=== PATIENT | female | born 1995 | race Caucasian/White ===

== ENCOUNTER 2018-11-24 14:30 | Inpatient (IN) | payer OTHER ==
[~2018-11-24] VITALS: Ht 162.6 cm; Wt 102.0 kg
[~2018-11-24 14:30] MED LIST: ACET500 PO; AMOX500 PO; Bactrim Ds Tab1 EACH PO; CEPH500 PO; CLOT1TC TOP; CRUTCH4 USE; ESCI10 PO; Flagyl500 MG PO; HYDACE5 PO; IBUP800 PO; INCARCERATION; Keflex500 MG PO; Mobic15 MG PO; NAPR500 PO; OMEP20ER PO; OXYACE5T PO; PHENA100 PO; RANI150; RXONDA4ODT MM; SULTRIDS PO; TETR250 PO; TRAZ50 PO; Tylenol325 MG PO; Verotin-Gr Cap1 EACH PO; Zofran Odt4 MG SL; Zofran Odt8 MG SL
[2018-11-25] MEDS ORDERED: Verotin-Gr Cap1 EACH PO (12:54)
[2018-11-25] MEDS ORDERED: IRON236 MG PO (12:56)
[2018-11-25 13:25] LABS: BASOPHILS ABSOLUTE AUTO 0.05 K/mm3 (0.00-0.23); BASOPHILS PERCENT AUTO 1 % (0-2); EOSINOPHILS ABSOLUTE AUTO 0.03 K/mm3 (0.00-0.68); EOSINOPHILS PERCENT AUTO 0 % (0-6); Hematocrit 33.5 % (33.0-51.0); Hemoglobin 10.7 g/dL (11.5-16.0); IMMATURE GRAN ABSOLUTE AUTO 0.03 K/mm3 (0.00-0.10); IMMATURE GRAN PERCENT AUTO 0 % (0-1); LYMPHOCYTES ABSOLUTE AUTO 1.46 K/mm3 (0.84-5.20); LYMPHOCYTES PERCENT AUTO 16 % (21-46); MONOCYTES ABSOLUTE AUTO 0.44 K/mm3 (0.16-1.47); MONOCYTES PERCENT AUTO 5 % (4-13); Mean Corpuscular HGB 27.8 pg (26.0-34.0); Mean Corpuscular HGB Conc 31.9 g/dL (31.5-36.5); Mean Corpuscular Volume 87 fL (80-100); Mean Platelet Volume 10.9 fL (9.1-12.4); NEUTROPHILS ABSOLUTE AUTO 7.03 K/mm3 (1.96-9.15); NEUTROPHILS PERCENT AUTO 78 % (41-73); Platelet Count 286 K/mm3 (150-400); RDW Standard Deviation 51.1 fL (35.1-46.3); Red Blood Cell Count 3.85 M/mm3 (3.80-5.20); White Blood Cell Count 9.04 K/mm3 (4.00-11.30)
[2018-11-26 08:29] LABS: PCO2 Cord - Arterial 50.3 mmHg (40-50); PO2 Cord - Arterial 19.4 mmHg (16-20); pH Cord - Arterial 7.34 (7.28-7.35)
[2018-11-26 08:30] LABS: PCO2 Cord - Venous 38.6 mmHg (40-50); pH Umbilical Cord - Venous 7.41 (7.26-7.35)
[2018-11-26 08:31] LABS: PO2 Cord - Venous 32.1 mmHg (28-32)
--- NOTE | 2018-11-26 08:47 | NUR ---
11/26/18 0847 Ansley Enriquez VIABLE FEMALE BORN AT 0813, 9/9, WEIGHT 3385, (7-7) H 12.34, C 13, L 19.75. CORD BLOOD GIVEN TO TAY GRANT. CORD GASES GIVEN TO KATHLEEN RT.
--- NOTE | 2018-11-26 12:01 | NUR ---
assumed care of pt and baby, pt reports pain 7/10, smiling to family, eating lunch, answering questions, not rocking in bed or moving from pain, talking normally
--- NOTE | 2018-11-26 17:16 | NUR ---
PT GIVEN HILARIO YOGURT TO EAT, SHE NOT SURE SHE IS GOING TO LIKE HER DINNER TRAY. REPORTS NO PAIN WHEN LAYING STILL, FAMIY AT BEDSIDE, BABY SLEEPING IN CRIB
[2018-11-27 06:42] LABS: BASOPHILS ABSOLUTE AUTO 0.05 K/mm3 (0.00-0.23); BASOPHILS PERCENT AUTO 1 % (0-2); EOSINOPHILS ABSOLUTE AUTO 0.07 K/mm3 (0.00-0.68); EOSINOPHILS PERCENT AUTO 1 % (0-6); Hematocrit 32.5 % (33.0-51.0); Hemoglobin 10.3 g/dL (11.5-16.0); IMMATURE GRAN ABSOLUTE AUTO 0.06 K/mm3 (0.00-0.10); IMMATURE GRAN PERCENT AUTO 1 % (0-1); LYMPHOCYTES ABSOLUTE AUTO 1.95 K/mm3 (0.84-5.20); LYMPHOCYTES PERCENT AUTO 18 % (21-46); MONOCYTES ABSOLUTE AUTO 1.04 K/mm3 (0.16-1.47); MONOCYTES PERCENT AUTO 10 % (4-13); Mean Corpuscular HGB 27.5 pg (26.0-34.0); Mean Corpuscular HGB Conc 31.7 g/dL (31.5-36.5); Mean Corpuscular Volume 87 fL (80-100); Mean Platelet Volume 10.7 fL (9.1-12.4); NEUTROPHILS ABSOLUTE AUTO 7.69 K/mm3 (1.96-9.15); NEUTROPHILS PERCENT AUTO 71 % (41-73); Platelet Count 216 K/mm3 (150-400); RDW Coefficient Variation 15.9 % (11.7-14.2); RDW Standard Deviation 50.4 fL (35.1-46.3); Red Blood Cell Count 3.75 M/mm3 (3.80-5.20); White Blood Cell Count 10.86 K/mm3 (4.00-11.30)
--- NOTE | 2018-11-28 11:41 | NUR ---
DISCHARGE INSTRUCTIONS REVIEWED WITH PT, PT VERBALIZED UNDERSTANDING AND DENIES ANY FURTHER QUESTIONS OR CONCERNS. PRESCRIPTIONS FOR IBUPROFEN AND PERCOCET GIVEN TO PT. PT STATES SHE HAS APPOINTMENT WITH [facility] ON Saturday12-02-18. NO OBVIOUS SIGNS OF ACUTE DISTRESS.
== END 2018-11-28 11:45 | disposition home or self-care (01) | DRG 788 ==
LOC: BC 11-26 05:25
PROVIDERS: ADMIT Obstetrics & Gynecology
PROC: 10D00Z1 Extraction of Products of Conception, Low, Open Approach (ICD-10-PCS; principal; 2018-11-26 07:30)
DX: O34.211 Maternal care for low transverse scar from previous cesarean delivery (principal); O99.02 Anemia complicating childbirth; D50.9 Iron deficiency anemia, unspecified; Z3A.39 39 weeks gestation of pregnancy; Z37.0 Single live birth; O99.62 Diseases of the digestive system complicating childbirth; K21.9 Gastro-esophageal reflux disease without esophagitis; O99.334 Smoking (tobacco) complicating childbirth; F17.210 Nicotine dependence, cigarettes, uncomplicated
CPT/HCPCS: 36415; 82803; 85025; 86850; 86900; 86901; J0690; J1100; J1885; J2370; J2405; J2590; J2704; J2765; J3010; J7120

== ENCOUNTER 2019-08-21 16:00 | Emergency (ER) | payer OTHER ==
[~2019-08-21] VITALS: Ht 160 cm; Wt 90.7 kg
[~2019-08-21 16:00] MED LIST changes: +IRON236 MG PO
== END 2019-08-21 16:43 | disposition home or self-care (01) ==
LOC: ER 16:00
DX: J02.0 Streptococcal pharyngitis (principal); F41.9 Anxiety disorder, unspecified; F32.9 Major depressive disorder, single episode, unspecified; Z79.899 Other long term (current) drug therapy; Z87.891 Personal history of nicotine dependence
CPT/HCPCS: 87430; 99282

== ENCOUNTER → 2020-03-10 | Outpatient (CLI) | payer OTHER ==
[2020-03-11 09:48] LABS: Candida species (DNA Probe) Negative (NEGATIVE); G. vaginalis (DNA Probe) Negative (NEGATIVE); T. vaginalis (DNA Probe) Negative (NEGATIVE)
[2020-03-12 20:09] LABS: CHLAMYDIA BY NAA Negative (Negative); GONOCOCCUS BY NAA Negative (Negative); TRICH VAG BY NAA Negative (Negative)
== END | disposition home or self-care (01) ==
LOC: LAB 18:46 → LAB SHORT 18:46
PROVIDERS: Family Medicine
DX: Z11.3 Encounter for screening for infections with a predominantly sexual mode of transmission (principal)
CPT/HCPCS: 87480; 87491; 87510; 87591; 87660; 87661

== ENCOUNTER → 2020-11-02 | Outpatient (CLI) | payer OTHER ==
[~2020-11-02] MED LIST changes: +Monodox100 MG PO; +Tindamax500 MG PO
[2020-11-05 13:10] LABS: CHLAMYDIA BY NAA Positive (Negative); GONOCOCCUS BY NAA Positive (Negative); TRICH VAG BY NAA Positive (Negative)
== END | disposition home or self-care (01) ==
LOC: LAB 15:25 → LAB SHORT 15:25
PROVIDERS: Chiropractor
DX: R82.79 Other abnormal findings on microbiological examination of urine (principal); Z72.51 High risk heterosexual behavior
CPT/HCPCS: 87086; 87491; 87591; 87661

== ENCOUNTER 2020-11-25 16:31 | Emergency (ER) | payer OTHER ==
[~2020-11-25] VITALS: Ht 160 cm; Wt 99.8 kg
[~2020-11-25 16:31] MED LIST changes: -Monodox100 MG PO; -Tindamax500 MG PO
[2020-11-25 18:31] LABS: Source, Urine Clean Catch
[2020-11-25 18:37] LABS: Bilirubin, Urine Neg (Neg); Blood, Urine 2+ (Neg); Glucose Qualitative, Urine Neg (Neg); Ketones, Urine 1+ (Neg); Leukocyte Esterase, Urine 3+ (Neg); Nitrite, Urine Neg (Neg); Protein, Urine 2+ (Neg); Specific Gravity, Urine 1.025 (1.003-1.022); Urobilinogen, Urine 1+ (Normal)
[2020-11-25 19:12] LABS: Amorphous Light (0-Heavy); Appearance, Urine Hazy (Clear); Bacteria Mod /hpf; Color, Urine Yellow (P-Yellow); Mucus Light (0-Heavy); Squamous Epithelial Cells Many /hpf (Few); White Blood Cells, Urine 50-100 /hpf (0-5)
[2020-11-25] MEDS ORDERED: CEPH500 PO ×2 (19:23→19:25)
[2020-11-29 00:07] LABS: GONOCOCCUS BY NAA Negative (Negative); TRICH VAG BY NAA Positive (Negative)
[2020-11-29 10:22] LABS: CHLAMYDIA BY NAA Positive (Negative)
[2020-11-29] MEDS ORDERED: Tindamax500 MG PO (10:41)
[2020-11-29] MEDS ORDERED: Monodox100 MG PO (10:41)
== END 2020-11-25 19:36 | disposition home or self-care (01) ==
LOC: ER 16:31
PROVIDERS: Student in an Organized Health Care Education/Training Program
DX: A59.00 Urogenital trichomoniasis, unspecified (principal)
CPT/HCPCS: 81001; 81025; 87086; 87147; 87491; 87591; 87661; 99283-25

== ENCOUNTER → 2021-02-24 | Outpatient (CLI) | payer OTHER ==
[~2021-02-24] MED LIST changes: +Monodox100 MG PO; +Tindamax500 MG PO
[2021-02-25 14:29] LABS: Candida species (DNA Probe) Negative (NEGATIVE); G. vaginalis (DNA Probe) Negative (NEGATIVE); T. vaginalis (DNA Probe) Positive (NEGATIVE)
[2021-02-26 05:08] LABS: CHLAMYDIA TRACHOMATIS, NAA Positive (Negative)
== END | disposition home or self-care (01) ==
LOC: LAB 15:49 → LAB SHORT 15:49
PROVIDERS: Family Medicine
DX: Z11.3 Encounter for screening for infections with a predominantly sexual mode of transmission (principal); N89.8 Other specified noninflammatory disorders of vagina
CPT/HCPCS: 87480; 87491; 87510; 87591; 87660

== ENCOUNTER 2021-04-01 21:40 | Emergency (ER) | payer OTHER ==
[~2021-04-01] VITALS: Ht 160 cm; Wt 97.5 kg
[2021-04-02] MEDS ORDERED: AMOCLA875 PO (01:00)
[2021-04-02] MEDS ORDERED: Norco 5-325 Ta1 EACH PO (01:01)
== END 2021-04-02 01:17 | disposition home or self-care (01) ==
LOC: ER 21:40
DX: S01.351A Open bite of right ear, initial encounter (principal); Y04.1XXA Assault by human bite, initial encounter; Z88.8 Allergy status to other drugs, medicaments and biological substances; F17.200 Nicotine dependence, unspecified, uncomplicated
CPT/HCPCS: 12051; 90471; 99283-25; A9270

== ENCOUNTER → 2021-10-27 | Outpatient (CLI) | payer OTHER ==
[~2021-10-27] MED LIST changes: +AMOCLA875 PO; +Norco 5-325 Ta1 EACH PO
== END | disposition home or self-care (01) ==
LOC: LAB SHORT 14:36
DX: J02.9 Acute pharyngitis, unspecified (principal)
CPT/HCPCS: 87081